=== PATIENT | male | born 1960 ===

== ENCOUNTER 2025-08-05 04:16 | Emergency (ER) | payer SELFPAY ==
[~2025-08-05] VITALS: Ht 182.9 cm; Wt 106.6 kg
== END 2025-08-05 05:04 | disposition home or self-care (01) ==
LOC: ER 04:16
DX: R45.1 Restlessness and agitation (principal); F41.9 Anxiety disorder, unspecified; T50.906A Underdosing of unspecified drugs, medicaments and biological substances, initial encounter; Z86.59 Personal history of other mental and behavioral disorders; Z91.148 Patient's other noncompliance with medication regimen for other reason; Z88.5 Allergy status to narcotic agent
CPT/HCPCS: 99284